=== PATIENT | female | born 1990 | race African-American/Black ===

== ENCOUNTER 2016-07-17 11:55 | Emergency (ER) | payer MEDICAID ==
[~2016-07-17] VITALS: Ht 172.7 cm; Wt 81.8 kg
[~2016-07-17 11:55] MED LIST: AMOXICILLIN 50500 MG PO; BACTRIM DS 8001 TAB PO; CEPHALEXIN500 M1 PO; CLARITIN 1010 MG/TAB PO; DOXY-D100 MG PO; FLAGYL500 MG PO; METROGEL-VAGINA0.75% VG; MIRENA52 MG IU; NO HOME MEDICATIONS; PHENERGAN 25 TA25 MG PO; PREDNISONE20 MG PO; PRENATAL1 TA1 PO; ZITHROMAX 250M250 MG PO
[2016-07-17 12:23] VITALS: TEMP 99.2
[2016-07-17] MEDS ORDERED: PRENATAL MULTIV1 KIT PO (12:29)
[2016-07-17 13:21] LABS: HEMATOCRIT 41.1 % (37.0-47.0); HEMOGLOBIN 14.9 g/dl (12.5-16.0); MEAN CELL VOLUME 90 fl (80.0-100.0); MEAN CORPUSCULAR HEMOGLOBIN 33 pg (27.0-31.0); MEAN CORPUSCULAR HGB CONC 36 g/dl (33.0-37.0); MEAN PLATELET VOLUME 11.3 fl (7.4-10.4); PLATELET COUNT 194 K/mm3 (130-400); RED BLOOD COUNT 4.57 M/mm3 (4.10-5.30); REDCELL DISTRIBUTION WIDTH-CV 12.8 % (11.5-14.5); WHITE BLOOD COUNT 9.7 K/mm3 (4.8-10.8)
[2016-07-17 13:27] LABS: PH 6 (5-8); URINE APPEARANCE Clear; URINE BACTERIA Rare /hpf; URINE BILIRUBIN Negative (NEGATIVE); URINE BLOOD Negative (NEGATIVE); URINE COLOR Yellow; URINE GLUCOSE Negative (NEGATIVE); URINE KETONE Negative (NEGATIVE); URINE RBC 0-2 /hpf; URINE UROBILINOGEN Negative (NEGATIVE); URINE WBC 0-2 /hpf
[2016-07-17 13:35] LABS: ADD PATHOLOGY DIFF REVIEW NO
[2016-07-17 13:36] LABS: ADJUSTED CALCIUM 9.3 mg/dL (8.4-10.2); ALBUMIN 4.7 gm/dL (3.5-5.0); BILIRUBIN,TOTAL 1.2 mg/dL (0.0-1.0); CALCIUM 9.9 mg/dL (8.4-10.2); CREATININE, serum 0.64 mg/dL (0.52-1.25); POTASSIUM 3.5 mmol/L (3.4-5.0); TOTAL PROTEIN 8.3 gm/dL (6.4-8.2)
[2016-07-17 13:42] LABS: BAND 19 % (0-10); NEUTROPHILS 78 % (42.0-75.2); PLATELET ESTIMATE NORMAL (NORMAL); TOTAL CELLS COUNTED 100
[2016-07-17] MEDS ORDERED: PHENERGAN 25 TA25 MG PO (14:35)
[2016-07-17 14:43] VITALS: BP 108/70; PULSE 76
== END 2016-07-17 14:44 | disposition home or self-care (01) ==
LOC: COL.ER 11:55
PROVIDERS: Nurse Practitioner
DX: O21.9 Vomiting of pregnancy, unspecified (principal); Z3A.11 11 weeks gestation of pregnancy
CPT/HCPCS: J2550; J7030

== ENCOUNTER 2016-12-12 11:40 | Inpatient (IN) | payer MEDICAID ==
[~2016-12-12] VITALS: Ht 172.7 cm; Wt 106.8 kg
[~2016-12-12 11:40] MED LIST changes: +PRENATAL MULTIV1 KIT PO
[2017-01-31] VITALS (40 sets, daily range): BP systolic 99–149; BP diastolic 53–89; PULSE 60–150; TEMP 97.7–99.2
[2017-01-31 13:53] LABS: BASO % 0.2 % (0.0-2.0); EOS # 0.1 (0.0-0.7); EOS % 0.7 % (0-4.0); GRAN # 11.9 (1.4-6.5); GRAN % 80.4 % (42.2-75.2); HEMATOCRIT 37.8 % (37.0-47.0); HEMOGLOBIN 13.6 g/dl (12.5-16.0); LYMPH # 1.6 (1.2-3.4); LYMPH % 10.9 % (20.0-51.0); MEAN CELL VOLUME 92 fl (80.0-100.0); MEAN CORPUSCULAR HEMOGLOBIN 33 pg (27.0-31.0); MEAN CORPUSCULAR HGB CONC 36 g/dl (33.0-37.0); MEAN PLATELET VOLUME 11.8 fl (7.4-10.4); MONO % 6.6 % (1.7-9.3); PLATELET COUNT 183 K/mm3 (130-400); RED BLOOD COUNT 4.13 M/mm3 (4.10-5.30); REDCELL DISTRIBUTION WIDTH-CV 13.2 % (11.5-14.5); WHITE BLOOD COUNT 14.8 K/mm3 (4.8-10.8)
[2017-02-01] VITALS (8 sets, daily range): BP systolic 106–127; BP diastolic 55–71; PULSE 71–91; TEMP 97.7–98.3
[2017-02-01] MEDS ORDERED: PERCOCET 325 MG1 TA2 PO (17:51)
[2017-02-01] MEDS ORDERED: MOTRIN 800800 MG/TAB PO (17:51)
[2017-02-02] MEDS ORDERED: BREASTPUMP MC (08:40)
[2017-02-02 08:52] VITALS: BP 100/66; PULSE 79; TEMP 98.5
== END 2017-02-02 12:40 | disposition home or self-care (01) | DRG 775 ==
LOC: LDRO → LDR 01-31 10:49 → OB 01-31 23:07 → EDSTATUS 02-02 07:10 → LDR 02-02 07:15 → LDRO 02-02 11:40 → OB 02-02 12:40
PROVIDERS: Obstetrics & Gynecology
PROC: 10E0XZZ Delivery of Products of Conception, External Approach (ICD-10-PCS; principal; 2017-01-31)
PROC: 0HQ9XZZ Repair Perineum Skin, External Approach (ICD-10-PCS; 2017-01-31)
DX: O69.81X0 Labor and delivery complicated by cord around neck, without compression, not applicable or unspecified (principal); O70.0 First degree perineal laceration during delivery; Z3A.39 39 weeks gestation of pregnancy; Z37.0 Single live birth
CPT/HCPCS: J2210; J2400; J2590; J7120

== ENCOUNTER 2016-12-16 07:41 | Outpatient (CLI) | payer MEDICAID ==
[~2016-12-16] VITALS: Ht 172.7 cm; Wt 101.8 kg
[2016-12-16 07:51] VITALS: BP 125/71; PULSE 81; TEMP 98.2
[2016-12-16 08:30] VITALS: BP 124/74; PULSE 85
== END 2016-12-16 08:55 | disposition home or self-care (01) ==
LOC: LDRO 07:41
DX: O26.893 Other specified pregnancy related conditions, third trimester (principal); R19.7 Diarrhea, unspecified; Z3A.33 33 weeks gestation of pregnancy

== ENCOUNTER 2018-12-16 10:43 | Observation (INO) | payer MEDICAID ==
[~2018-12-16] VITALS: Ht 170.2 cm; Wt 101.0 kg
[~2018-12-16 10:43] MED LIST changes: +BREASTPUMP MC; +IBU600 MG PO; +MOTRIN 800800 MG/TAB PO; +PERCOCET 325 MG1 TA2 PO
[2018-12-16 11:35] LABS: COLLECTION METHOD CLEAN CATCH
[2018-12-16 11:43] LABS: HEMATOCRIT 40.1 % (37.0-47.0); HEMOGLOBIN 13.4 g/dl (12.5-16.0); MEAN CELL VOLUME 92 fl (80.0-100.0); MEAN CORPUSCULAR HEMOGLOBIN 31 pg (27.0-31.0); MEAN CORPUSCULAR HGB CONC 33 g/dl (33.0-37.0); MEAN PLATELET VOLUME 11.4 fl (7.4-10.4); PLATELET COUNT 217 K/mm3 (130-400); RED BLOOD COUNT 4.36 M/mm3 (4.10-5.30)
[2018-12-16 11:52] LABS: ALBUMIN 4.4 gm/dL (3.5-5.0); BILIRUBIN,TOTAL 0.8 mg/dL (0.0-1.0); C-REACTIVE PROTEIN 2.3 mg/dL (0.0-0.9); CALCIUM 9.6 mg/dL (8.4-10.2); CREATININE, serum 0.62 (0.52-1.25); POTASSIUM 3.7 mmol/L (3.4-5.0); TOTAL PROTEIN 7.7 gm/dL (6.4-8.2)
[2018-12-16 12:00] LABS: MUCOUS Present /lpf; PH 7 (5-8); URINE APPEARANCE Hazy; URINE BACTERIA Rare /hpf; URINE BILIRUBIN Negative (NEGATIVE); URINE BLOOD 3+ (NEGATIVE); URINE COLOR Yellow; URINE GLUCOSE Negative (NEGATIVE); URINE KETONE Negative (NEGATIVE); URINE LEUKOCYTE ESTERASE Trace (NEGATIVE); URINE NITRATE Negative (NEGATIVE); URINE PROTEIN(semi-quant) 2+ (NEGATIVE); URINE RBC >50 /hpf; URINE UROBILINOGEN Negative (NEGATIVE)
[2018-12-16 12:50] LABS: BAND 13 % (0-10); LYMPHOCYTE 3 % (20.0-51.0); NEUTROPHILS 81 % (42.0-75.2); PLATELET ESTIMATE NORMAL (NORMAL)
[2018-12-16] MEDS ORDERED: BIRTH CONTROL (16:17)
[2018-12-16 16:58] VITALS: BP 115/71; PULSE 97; TEMP 99.2
--- NOTE | 2018-12-16 16:58 | NUR ---
arrived on unit per WC and assisted into bed, [employer] in to comoplete initial assessment
--- NOTE | 2018-12-16 17:30 | NUR ---
full assessment completed, see intervention for further info, resting in bed, readyd to use breast pump, asking about something to eat, clearliquid tray ordered
--- NOTE | 2018-12-16 18:30 | NUR ---
resting in bed, is waiting for another nurse to instruct on use of breast pump so is currently pumping manually
--- NOTE | 2018-12-16 19:12 | NUR ---
bedside shift report given to CARMEN Carvalho
[2018-12-16 20:12] VITALS: BP 115/57; PULSE 91; TEMP 98.4
[2018-12-16 22:55] VITALS: BP 97/58; PULSE 80; TEMP 98.6
[2018-12-17] VITALS (8 sets, daily range): BP systolic 96–117; BP diastolic 40–57; PULSE 69–104; TEMP 98.2–103
--- NOTE | 2018-12-17 07:41 | NUR ---
Report from bobby MARCUM
[2018-12-17 08:22] LABS: HEMOGLOBIN 11.9 g/dl (12.5-16.0); MEAN CELL VOLUME 91 fl (80.0-100.0); MEAN CORPUSCULAR HEMOGLOBIN 31 pg (27.0-31.0); MEAN CORPUSCULAR HGB CONC 34 g/dl (33.0-37.0); MEAN PLATELET VOLUME 11.5 fl (7.4-10.4); PLATELET COUNT 180 K/mm3 (130-400); RED BLOOD COUNT 3.81 M/mm3 (4.10-5.30); REDCELL DISTRIBUTION WIDTH-CV 13.3 % (11.5-14.5)
[2018-12-17 08:23] LABS: HEMATOCRIT 34.8 % (37.0-47.0)
[2018-12-17 08:34] LABS: CALCIUM 8.8 mg/dL (8.4-10.2); CREATININE, serum 0.8 (0.52-1.25); POTASSIUM 3.5 mmol/L (3.4-5.0)
--- NOTE | 2018-12-17 09:00 | NUR ---
Initial visit; Patient thanked [employer] for stopping and offering God's blessings. [employer] will keep Carolyn in her prayers and follow up visit.
--- NOTE | 2018-12-17 09:25 | NUR ---
PT RESTING IN BED. UP TO BR WITH SBA X1. PT TO CT PER ORDERS, PT DENIES NEEDS AT THIS TIME.
--- NOTE | 2018-12-17 16:04 | NUR ---
SW met with patient to discuss discharge planning. Patient lives independently at home alone with her children. Patient's PCP is Dr Hays but she has not seen her in a long time. She obtains prescriptions from [facility]. Patient does not use DME or home health. SW does not anticipate any discharge needs.
--- NOTE | 2018-12-17 16:44 | NUR ---
called Dr Finch reporting elevated temp and request immodium for diarrhea bouts.
--- NOTE | 2018-12-17 18:31 | NUR ---
spoke with Dr. Finch no new orders at this time. Patient temp currently 100.2.
--- NOTE | 2018-12-17 19:07 | NUR ---
report to Miguel MORALES.
--- NOTE | 2018-12-17 21:10 | NUR ---
Pt. laying in bed at this time. Pt. is A&OX3, assessment complete. IV to rt. forearm patent, IV fluids infusing per orders. Pt. denies pain or other needs at this time. Call light within reach.
[2018-12-18 00:26] VITALS: BP 105/60; PULSE 87; TEMP 99.7
[2018-12-18 04:13] VITALS: TEMP 98.2
[2018-12-18 06:15] LABS: HEMOGLOBIN 11.2 g/dl (12.5-16.0); MEAN CELL VOLUME 92 fl (80.0-100.0); MEAN CORPUSCULAR HEMOGLOBIN 31 pg (27.0-31.0); MEAN CORPUSCULAR HGB CONC 33 g/dl (33.0-37.0); MEAN PLATELET VOLUME 11.7 fl (7.4-10.4); PLATELET COUNT 183 K/mm3 (130-400); RED BLOOD COUNT 3.65 M/mm3 (4.10-5.30); REDCELL DISTRIBUTION WIDTH-CV 13.2 % (11.5-14.5)
[2018-12-18 06:22] LABS: HEMATOCRIT 33.6 % (37.0-47.0)
--- NOTE | 2018-12-18 06:50 | NUR ---
Report from Miguel MORALES.
[2018-12-18 07:30] LABS: EOSINOPHIL 1 % (0-4); LYMPHOCYTE 4 % (20.0-51.0); NEUTROPHILS 94 % (42.0-75.2); PLATELET ESTIMATE NORMAL (NORMAL)
[2018-12-18 08:07] VITALS: BP 87/44; PULSE 72; TEMP 98.2
--- NOTE | 2018-12-18 08:39 | NUR ---
PT RESTING IN BED. FEVERS RESOLVING. PT DENIES NEEDS AT THIS TIME. SOME LOOSE STOOLS OVER NIGHT.
[2018-12-18 09:14] VITALS: BP 98/55
[2018-12-18 12:34] VITALS: BP 107/50; PULSE 82; TEMP 98.3
--- NOTE | 2018-12-18 12:46 | NUR ---
PT TOLERATING PROGRESSIVE DIET.
--- NOTE | 2018-12-18 15:17 | NUR ---
REPORT TO KAYCEE MORALES.
[2018-12-18 16:29] VITALS: BP 108/62; PULSE 82; TEMP 98
[2018-12-18] MEDS ORDERED: AMOXICILLIN 8751 TAB PO (17:03)
--- NOTE | 2018-12-18 19:20 | NUR ---
Patient is discharging home. Discharge instructions discussed with patient. No questions verbalized. INT discontinued. Explained on friday she needs to call and make a follow up appointment. Explained her antibiotics were sent to [facility] and she can pick them up tomorrow. Copies of discharge instructions sent with patient. Patient walked out via wheel chair by DENNIS.
== END 2018-12-18 19:20 | disposition home or self-care (01) ==
LOC: COL.ER 10:43 → JCC 15:30
PROVIDERS: Physician Assistant; ADMIT Surgery
DX: R10.9 Unspecified abdominal pain (principal)
CPT/HCPCS: G0378; J1170; J1885; J2405; J2543; J7030; Q9967